=== PATIENT | female | born 1940 | race Caucasian/White ===

== ENCOUNTER 2019-09-04 05:27 | Inpatient (IN) ==
--- NOTE | 2019-08-20 11:31 | PAT Medication Instructions ---
Medication Instructions Date of Service August 20, 2019 Home Medications Bifidobacterium infantis [Align] 4 mg PO QAM amlodipine 10 mg PO QAM ascorbic acid (vitamin C) 500 mg PO DAILY aspirin [Aspir-81] 81 mg PO DAILY cholecalciferol (vitamin D3)50 mcg PO DAILY gabapentin 300 mg PO BID omega 3-oxc-tgy-fish oil [Fish Oil] 1 cap PO DAILY omeprazole 20 mg PO BID pravastatin 20 mg PO QAM vitamin B complex 1 cap PO DAILY STOP taking 2 weeks before surgery If surgery is within 2 weeks, stop taking as soon as possible. omega 6-cdq-jue-fish oil [Fish Oil] 1 cap PO DAILY DO NOT take the morning of surgery Bifidobacterium infantis [Align] 4 mg PO QAM ascorbic acid (vitamin C) 500 mg PO DAILY cholecalciferol (vitamin D3)50 mcg PO DAILY vitamin B complex 1 cap PO DAILY Take morning of surgery With a small sip of water, OTHERWISE NOTHING TO EAT OR DRINK AFTER MIDNIGHT: amlodipine 10 mg PO QAM aspirin [Aspir-81] 81 mg PO DAILY gabapentin 300 mg PO BID omeprazole 20 mg PO BID pravastatin 20 mg PO QAM Take evening before surgery gabapentin 300 mg PO BID omeprazole 20 mg PO BID Other Notes If you have any questions please call us at [phone] or [phone] or [phone] or [phone]
--- NOTE | 2019-08-20 11:54 | Anesthesiology Consultation ---
Date of Service August 20, 2019 Assessment & Plan (1) Encounter for pre-operative examination: PCP clearance 09/02/19 = "Cleared for surgery; Lexiscan stress is normal." [negative for ischemia/infarct; EF was low at 41%] Chart Review Chart Review: Acceptable Risk for Surgery and Patient seen in Pre Admission Testing Teaching & Discussion Instructed NPO after midnight before surgery, except medications with 15 cc of water. Medication instructions provided according to the PAT guidelines. History Surgery Operation Date: 09/04/19 07:45 Proposed Procedures p L4-L5 Decompression And Fusion, Possible L5-S1, With Spinal Cord Monitoring - Toñito Brock DO Height/Weight Height: 5 ft Weight: 57.9 kg Allergies Allergy/AdvReac Type Severity Reaction Status Date / Time adhesive Allergy Unknown Rash Verified 08/13/19 08:25 latex Allergy Unknown Rash - SEE Verified 08/13/19 08:25 NOTES BELOW ciprofloxacin [From Cipro] AdvReac Unknown N/V Verified 08/13/19 08:05 ELASTIC Allergy Unknown Rash Uncoded 08/13/19 08:25 Medications Home Medications Medication Instructions Recorded Confirmed Last Taken Bifidobacterium infantis [Align] 4 mg PO QAM 08/13/19 08/13/19 Unknown amlodipine 10 mg PO QAM 08/13/19 08/13/19 Unknown ascorbic acid (vitamin C) [Vitamin 500 mg PO DAILY 08/13/19 08/13/19 Unknown C] aspirin [Aspir-81] 81 mg PO DAILY 08/13/19 08/13/19 Unknown cholecalciferol (vitamin D3) 50 mcg PO DAILY 08/13/19 08/13/19 Unknown [Vitamin D3] gabapentin 300 mg PO BID 08/13/19 08/13/19 Unknown omega 5-wgv-jbm-fish oil [Fish Oil] 1 cap PO DAILY 08/13/19 08/13/19 Unknown omeprazole 20 mg PO BID 08/13/19 08/13/19 Unknown pravastatin 20 mg PO QAM 08/13/19 08/13/19 Unknown vitamin B complex 1 cap PO DAILY 08/13/19 08/13/19 Unknown Past Medical History Medical History (Updated 09/03/19 @ 10:54 by Elie Carias) Acid reflux Back problem History of aneurysm Pt reports it was in her nose and was surgically repaired. Hyperlipidemia Hypertension IBS (irritable bowel syndrome) Systolic heart failure EF 41% Exercise / Class Metabolic Activity II 4-5 Yardwork/Stairs/Walk up hill (Denies CP or SOB with 3 FOS) Past Family History Family History Other Family history of cancer in daughter Past Surgical History Surgical History History of colonoscopy History of hysterectomy History of left heart catheterization Pt reports done a long time ago and she is unsure why. History of nasal surgery To cauterize/repair aneurysm Past Anesthesia History No Hx of Anesthesia Complications (other than PONV) and No Family Hx of Anesthesia Complications History of PONV No Hx of Motion Sickness and History of PONV Social History Smoking Status: Current every day smoker tobacco type: cigarettes Smoking cigarettes per day: .5PPD/ADVISED NPO Hx Alcohol Use: No substance use type: does not use Review of Systems Pt denies any recent chest pain, shortness of breath, palpitations, cough, fever or URI. Physical Exam Vital Signs BP: 120/63 P: 57bpm SPO2: 96% RA T: 98.1 F R: 16 ENMT Mouth: no dental restorations, no chipped teeth and no loose teeth Thyromental Distance: < 3.5 Finger Breadths (3) Mallampati Class: III Neck normal visual inspection; neck extension not limited Respiratory normal respiratory effort Auscultation: lungs clear to auscultation bilaterally Cardiovascular Rate/Rhythm: + bradycardic; + abnormal rhythm (Irregularly irregular) Heart Sounds: no murmur Vessels: no carotid bruit Extremities: no edema Testing Laboratory Results 08/20/19 11:49 08/20/19 11:49 PT 10.2 Seconds (9.0-12.0) 08/20/19 11:49 INR 1.0 (0.9-1.1) 08/20/19 11:49 APTT 25.6 Seconds (21.0-31.0) 08/20/19 11:49 Urine Color Dark Yellow 08/20/19 Unknown Urine Appearance Cloudy (Clear) A 08/20/19 Unknown Urine pH 5.0 (4.5-7.5) 08/20/19 Unknown Ur Specific [place] 1.021 (1.000-1.030) 08/20/19 Unknown Urine Protein Negative (Negative) 08/20/19 Unknown Urine Glucose (UA) Negative (Negative) 08/20/19 Unknown Urine Ketones Negative (Negative) 08/20/19 Unknown Urine Nitrite Negative (Negative) 08/20/19 Unknown Ur Leukocyte Esterase 1+ (Negative) H 08/20/19 Unknown Urine WBC (Auto) >30 /hpf (0-5) H 08/20/19 Unknown Urine RBC (Auto) 0-4 /hpf (0-4) 08/20/19 Unknown U Hyaline Cast (Auto) 1-5 /lpf (0-5) 08/20/19 Unknown U Epithel Cells (Auto) >30 /lpf (0-5) H 08/20/19 Unknown Urine Bacteria (Auto) 2+ (Negative) H 08/20/19 Unknown Blood Type A Positive 08/20/19 11:49 Antibody Screen NEGATIVE 08/20/19 11:49 08/20/19 Unknown Urine Culture - Final Urine,Clean Catch Escherichia coli Surgeons office notified of + UA. Electrocardiogram Date: 08/20/19 Sinus rhythm at 61bpm with PACs. LVH with QRS widening and repolarization abnormality. Inferior infarct. Chest X-Ray Date: 08/20/19 Findings: + NAD Echocardiogram Date: 08/26/19 EF: 40-45% LV is normal in size and wall thickness. The presence of frequent ectopy preclu maribel a proper assessment of LV systolic function, however there is global hypokinesis. RV is normal in size and contractility. Moderate left atrial dilation. Degenerated and mildly myxomatous mitral valve, mild mitral regurgitation. Stress Test Date: 09/02/19 Type: nuclear Resting EF: 41% There is normal uptake of radioactivity on both the stress and resting images. There is no evidence of ischemic change or old myocardial infarct. There is normal LV wall motion.
--- NOTE | 2019-08-20 12:34 | XRay Report ---
XR chest Pre-admission PA/Lat CLINICAL HISTORY: Preoperative evaluation. COMPARISON STUDY: No previous studies for comparison. FINDINGS: Lung volumes are normal. Lungs are clear. There is no pneumothorax or pleural effusion. Car diac size is normal. Mediastinal contours are normal. There is no evidence for pulmonary edema. Incid ental note is made of mild S-shaped curvature of the thoracolumbar spine which is partially imaged. IMPRESSION: No acute cardiopulmonary findings. ACT 112: Negative or not required by law. Electronically signed by: David Adams M.D. 08/20/2019 12:33 PM
[2019-08-20 12:58] LABS: Basophils # (auto) 0.02 K/uL (0-0.2); Basophils % (auto) 0.3 %; Eosinophils # (auto) 0.31 K/uL (0-0.5); Eosinophils % (auto) 4.9 %; Hematocrit (blood only) 39.9 % (37-47); Hemoglobin 13.6 g/dL (12.0-16.0); Lymphocytes # (auto) 1.77 K/uL (1.2-3.4); Lymphocytes % (auto) 27.7 %; Mean Corpuscular Hemoglobin 32.8 pg (25-34); Mean Corpuscular Hgb Conc 34.1 g/dL (32-36); Mean Corpuscular Volume 96.1 fL (80-100); Mean Platelet Volume 11.1 fL (7.4-10.4); Monocytes # (auto) 0.44 K/uL (0.11-0.59); Monocytes % (auto) 6.9 %; Neutrophils # (auto) 3.84 K/uL (1.4-6.5); Neutrophils % (auto) 60.2 %; Platelet Count 213 K/uL (130-400); RDW Coefficient of Variation 13.2 % (11.5-14.5); RDW Standard Deviation 45.9 fL (36.4-46.3); Red Blood Count 4.15 M/uL (4.2-5.4); White Blood Count 6.38 K/uL (4.8-10.8)
[2019-08-20 13:02] LABS: Appearance Urine Cloudy (Clear); Bacteria Urine Automated 2+ (Negative); Bilirubin Urine Negative (Negative); Blood Urine Negative (Negative); Color Urine Dark Yellow; Epithelial Cell Urine Auto >30 /lpf (0-5); Glucose Urine UA Negative (Negative); Ketones Urine Negative (Negative); Leukocyte Esterase Urine 1+ (Negative); Nitrite Urine Negative (Negative); Protein Urine Negative (Negative); RBC Urine Automated 0-4 /hpf (0-4); Specific Gravity Urine 1.021 (1.000-1.030); Urobilinogen Urine Negative (Negative); WBC Urine Automated >30 /hpf (0-5)
[2019-08-20 13:11] LABS: Partial Thromboplastin Ratio 0.9; Partial Thromboplastin Time 25.6 Seconds (21.0-31.0); Prothrombin Time 10.2 Seconds (9.0-12.0)
[2019-08-20 15:44] LABS: BUN Creatinine Ratio 30.8 (10-20); Calcium 9.2 mg/dl (8.5-10.1); Creatinine Clr Calc Pharmacy 52.6 ml/min; Est GFR (African American) 95.8; Est GFR (Non-African American) 82.6; Potassium 4.5 mmol/L (3.5-5.1)
--- NOTE | 2019-08-21 17:36 | Electrocardiogram Report ---
Test Reason : Blood Pressure : / mmHG Vent. Rate : 061 BPM Atrial Rate : 088 BPM P-R Int : 204 ms QRS Dur : 126 ms QT Int : 484 ms P-R-T Axes : 055 055 231 degrees QTc Int : 487 ms Sinus rhythm with Premature atrial complexes Left ventricular hypertrophy with QRS widening and repolarization abnormality Inferior infarct , age undetermined Abnormal ECG No previous ECGs available Confirmed by Jose Berrios ([id number]) on 08/21/2019 5:36:12 PM Referred By: Toñito Brock Confirmed By:Deangelo Berrios
[2019-09-04] MEDS ORDERED: LR 15ML/HR IV SCH (06:00)
[2019-09-04] MEDS ORDERED: GABAPENTIN 300 MG CAP PO SCH (06:00)
[2019-09-04] MEDS ORDERED: CEFAZOLIN 1000MG 1,000 MG/7.5 ML SYR IV SCH (06:00)
[2019-09-04] MEDS ORDERED: CeleBREX 200 MG CAP PO SCH (06:00)
[2019-09-04] MEDS ORDERED: ACETAMINOPHEN 500 MG TAB PO SCH (06:00)
[2019-09-04] MEDS ORDERED: PROPOFOL IV EMULSION 10 MG/ML 20 ML VIAL IV ONE ×4 (07:01→11:38)
[2019-09-04] MEDS ORDERED: HYDROmorphone INJ 2 MG/ML SYR/VIAL ONE ×2 (07:01→10:39)
[2019-09-04] MEDS ORDERED: LIDOCAINE HCL 2% 2 ML VIAL/AMP(20MG/ML) INFIL ONE (07:01)
[2019-09-04] MEDS ORDERED: DEXAMETHASONE SOD INJ 4 MG/ML VIAL ONE (07:02)
[2019-09-04] MEDS ORDERED: NEOSTIGMINE METHYLSULFATE 1 MG/ML 10ML VIAL ONE (07:02)
[2019-09-04] MEDS ORDERED: ROCURONIUM BROMIDE 10 MG/ML 5 ML VIAL ONE ×3 (07:02→11:38)
[2019-09-04] MEDS ORDERED: ONDANSETRON INJ 2 MG/ML 2 ML VIAL ONE (07:02)
[2019-09-04] MEDS ORDERED: GLYCOPYRROLATE 0.2 MG/ML VIAL ONE (07:02)
[2019-09-04] MEDS ORDERED: LARYING-O-JET KIT (LTA) ONE (07:02)
[2019-09-04] MEDS ORDERED: ATROPINE SULFATE 0.1 MG/ML 10ML SYR IV PRN (07:10)
[2019-09-04] MEDS ORDERED: fentaNYL citrate 100 MCG/2 ML VIAL IV PRN (07:10)
[2019-09-04] MEDS ORDERED: PROMETHAZINE HCL 12.5 MG in SODIUM CHLORIDE 0.9% 50 ML IV PRN ×2 (07:10→11:54)
[2019-09-04] MEDS ORDERED: HYDROmorphone INJ 1 MG/ML SYRINGE IV PRN ×2 (07:10→11:54)
[2019-09-04] MEDS ORDERED: ePHEDrine sulfate 50 MG/ML AMP IV PRN (07:10)
[2019-09-04] MEDS ORDERED: ONDANSETRON INJ 2 MG/ML 2 ML VIAL IV PRN ×2 (07:10→11:54)
[2019-09-04] MEDS ORDERED: BUPIVACAINE/EPINEPHRINE 0.5% MPF 1:200,000 10 ML VIAL ONE (07:18)
[2019-09-04] MEDS ORDERED: BACITRACIN INJ 50,000 UNIT VIAL ONE (07:18)
--- NOTE | 2019-09-04 07:28 | History & Physical Bridge Note ---
Date of Service September 04, 2019 History & Physical Bridge Note I have examined the patient, reviewed the History & Physical and in the interval since the performance of the History & Physical I have noted the following changes of clinical significance: no changes noted
--- NOTE | 2019-09-04 07:29 | History & Physical Report ---
Date of Service September 04, 2019 Assessment & Plan (1) Neurogenic claudication due to lumbar spinal stenosis: L4-L5 decompression fusion, possible L5-S1 Present on Admission?: Yes History of Present Illness Chief Complaint: Back and leg pain Primary Care Provider: Brandi Lemus This is an 79-year-old female presents with worsening back and leg pain after failing extensive course of nonoperative care is here for surgical invention. Allergies Allergy/AdvReac Type Severity Reaction Status Date / Time adhesive Allergy Mild Rash Verified 09/04/19 06:03 latex Allergy Mild Rash - SEE Verified 09/04/19 06:03 NOTES BELOW ELASTIC Allergy Mild Rash Uncoded 09/04/19 06:03 Home Medications Home Medications Medication Instructions Recorded Confirmed Type Bifidobacterium infantis [Align] 4 mg PO QAM 08/13/19 09/04/19 History amlodipine 10 mg PO QAM 08/13/19 09/04/19 History ascorbic acid (vitamin C) [Vitamin 500 mg PO DAILY 08/13/19 09/04/19 History C] aspirin [Aspir-81] 81 mg PO DAILY 08/13/19 09/04/19 History cholecalciferol (vitamin D3) 50 mcg PO DAILY 08/13/19 09/04/19 History [Vitamin D3] gabapentin 300 mg PO BID 08/13/19 09/04/19 History omega 0-eas-ncn-fish oil [Fish Oil] 1 cap PO DAILY 08/13/19 09/04/19 History omeprazole 20 mg PO BID 08/13/19 09/04/19 History pravastatin 20 mg PO QAM 08/13/19 08/13/19 History vitamin B complex 1 cap PO DAILY 08/13/19 08/13/19 History tramadol 50 mg PO DAILY 09/04/19 09/04/19 History Past Med/Surg History Family History Other Family history of cancer in daughter Social History Preferred Language: Lao Communication Ability: Effective Pizza Baker Required: No Beliefs That Will Affect Care: None Current Living Situation: Alone Other Information That Helps Us Care for You: No Feels Safe at Home: Yes Smoking Status: Current every day smoker Tobacco Type: cigarettes ; Cigarettes Per Day: .5PPD/ADVISED NPO ; Tobacco Cessation Education Requested by Patient: No Hx Alcohol Use: No Physical Exam Physical Exam: Patient is alert and oriented neurologically intact. Results & Data Vital Signs (Past 12 Hours) Vital Signs Temp Pulse Resp BP Pulse Ox 09/04/19 06:08 37.0 C 75 18 146/56 H 96
[2019-09-04] MEDS ORDERED: FLOSEAL HEMOSTATIC MATRIX 10ML TOP ONE (08:59)
--- NOTE | 2019-09-04 10:07 | Operative Report ---
Post Operative Report Pre & Post Diagnosis Operation Date: 09/04/19 07:45 Pre-Op Diagnosis: LUMBAR SPINAL STENOSIS W/NEUROGENIC CLAUDICATION Spondylolisthesis L5-S1 Post-Op Diagnosis: LUMBAR SPINAL STENOSIS W/NEUROGENIC CLAUDICATION Spondylolisthesis L5-S1 I identified the patient and participated in the time-out.: No Procedure Operation Date: 09/04/19 07:45 Actual Procedures #1 lumbar decompression bilateral medial facetectomies foraminotomies L3-4, L4- 5, L5-S1. #2 posterior spinal fusion L4-5 L5-S1. #3 placement posterior instrumentation L4-5 L5-S1. #5 4 interbody fusion L5-S1. #5 placed a peek cage 10 x 22 mm L5-S1 peer #6 placement locally harvested morselized autograft in the posterior lateral gutters. #7 placement infuse collagen sponge, master graft in the posterior lateral gutters and ostial amp and interbody space. Surgeon Toñito Brock, Legal Services Manager Luc Arevalo Estimated Blood Loss 100 Findings Consistent with Post-Op Diagnosis Specimens None Indications This is a 79-year-old female presents with above-mentioned diagnosis after failing extensive course of nonoperative care is here for surgical intervention. Description of Procedure Patient was met with identified informed consent obtained. Patient was then taken to the operative suite underwent intubation placed in a prone position the Dwaine table on top of the Pawel frame. All bony prominences well-padded eyes inspected to ensure no external pressure placed upon the. This point the lumbar spine was prepped and draped in normal sterile fashion. Sharp dissection with the assistance of Bovie cautery performed to and exposing the lamina transverse processes of L for L5 and sacral ala bilaterally. From caudal cephalad fashion complete laminectomy of L5 L4 and partial laminectomy of L3 was performed addressing severe central lateral recess stenosis as well as foraminal disease. Pedicle screws were then placed in L4-L5 and S1 levels bilaterally with assistance of fluoroscopy and appropriate size [place] placed. By way of a transforaminal approach and left complete discectomy was performed endplates curetted to subcortical bleeding bone and a 10 x 22 mm peek cage filled with osteo-bone graft tapped in position. The rods were then locked in final position bilaterally. The transverse processes of L4-L5 and sacral ala burred to subcortical bleeding bone. Infuse collagen sponge master graft local autograft placed in the posterior lateral gutters. 15 round CORI drain inserted. The incision was then closed with 1 Vicryl in the fascia 2-0 Vicryl subcutaneously and 4 Monocryl for final skin closure. Steri-Strip sterile dressings placed. Patient will continue PACU stable condition. Please note Luc record present at the entire procedure.the patient positioning complex portions of the surgery and final skin closure. Lastly spinal cord monitoring was utilized that procedure no changes noted. I attest to the content of the Intraoperative Record and any orders documented therein. Any exceptions are noted below.
[2019-09-04] MEDS ORDERED: MIDAZOLAM HCL 1 MG/ML 2ML VIAL ONE (10:39)
--- NOTE | 2019-09-04 10:42 | Fluoroscopy Report ---
FL lumbar spine 2-3V CLINICAL HISTORY: L4-L5 DECOMPRESSION AND FUSION POSSIBLE L5-S1 COMPARISON STUDY: None FLUOROSCOPY TIME: 23 seconds. NUMBER OF FLUOROSCOPIC IMAGES: 2 FINDINGS: There are postsurgical changes of an L5-S1 discectomy and interbody fusion. There is carpenter repair ior pedicle screw fixation at the L4-S1 level. IMPRESSION: Postsurgical changes of an L4-S1 spinal decompression and fusion. Evidence for an L5-S1 discectomy and interbody fusion. ACT 112: Negative or not required by law. Electronically signed by: Aydin Swartz M.D. 09/04/2019 10:40 AM
--- NOTE | 2019-09-04 11:24 | Anesthesiology Progress Note ---
Date of Service September 04, 2019 Anesthesia Post Procedure Vital Signs Vital Signs: Temp Pulse Pulse Resp BP Pulse Ox 09/04/19 11:15 52 L 16 106/41 L 95 09/04/19 11:05 37.2 C 56 L 14 113/39 L 93 09/04/19 10:55 54 L 16 116/37 L 93 09/04/19 10:45 55 L 16 118/38 L 100 09/04/19 10:35 55 L 20 113/42 L 100 09/04/19 10:28 37 C 56 L 14 124/44 L 100 09/04/19 06:08 37.0 C 75 18 146/56 H 96 Pain Intensity Right Lower Back: Pain Intensity: 4 Transfer of Care Handoff Completed per policy Notes Mental Status: alert / awake / arousable and participated in evaluation Patient Amnestic to Procedure: Yes Nausea / Vomiting: adequately controlled Pain: adequately controlled Airway Patency, RR, SpO2: stable & adequate BP & HR: stable & adequate Hydration State: stable & adequate Anesthetic Complications: no major complications apparent and Pt Satisfied with anesthetic care
[2019-09-04] MEDS ORDERED: DO NOT ADMINISTER PNEUMOCOCCAL VACCINE PRN (11:54)
[2019-09-04] MEDS ORDERED: DO NOT ADMINISTER FLU VACCINE PRN (11:54)
[2019-09-04] MEDS ORDERED: ONDANSETRON 4 MG OD TAB PO PRN (11:54)
[2019-09-04] MEDS ORDERED: FAMOTIDINE 20 MG TAB PO PRN (11:54)
[2019-09-04] MEDS ORDERED: bisacodyL 10 MG SUPP PR PRN (11:54)
[2019-09-04] MEDS ORDERED: METOCLOPRAMIDE HCL INJ 5 MG/ML 2 ML VIAL IV PRN (11:54)
[2019-09-04] MEDS ORDERED: HYDROmorphone INJ 0.5 MG/0.5 ML SYR IV PRN (11:54)
[2019-09-04] MEDS ORDERED: MAGNESIUM HYDROXIDE SUSP 30 ML UDC PO PRN (11:54)
[2019-09-04] MEDS ORDERED: SOD PHOSPHATE/SOD BIPHOSPHATE ENEMA 132 ML BTL PR PRN (11:54)
[2019-09-04] MEDS ORDERED: LORazepam 0.5 MG/1 ML VIAL IV PRN (11:54)
[2019-09-04] MEDS ORDERED: OXYCODONE HCL IR 5 MG TAB (IMMEDIATE RELEASE) PO PRN (11:54)
[2019-09-04] MEDS ORDERED: LORazepam 0.5 MG TAB PO PRN (11:54)
[2019-09-04] MEDS ORDERED: NALOXONE HCL 0.4 MG/1 ML VIAL/CARP IV PRN (11:54)
[2019-09-04] MEDS ORDERED: ACETAMINOPHEN 1,000 MG/100 ML VIAL IV PRN (11:54)
[2019-09-04] MEDS ORDERED: ALUMINUM/MAGNESIUM SUSP 30 ML UDC PO PRN (11:54)
--- NOTE | 2019-09-04 13:07 | Hospitalist Consultation ---
Date of Consultation September 04, 2019 Assessment & Plan (1) Neurogenic claudication due to lumbar spinal stenosis: - POD#0 L3-L4, L4-L5, L5-S1 decompression and L4-L5, L5-S1 fusion by Dr. Brock - activity and wound care orders as per ortho - pain control with bowel regimen - PT/OT - monitor H/H for acute blood loss anemia and transfuse blood products PRN (2) Hypertension: -BP controlled, continue amlodipine (3) Chronic systolic CHF (congestive heart failure): -EF 40 to 45% on preop echo -Does not take routine diuretics -Monitor volume status closely (4) Hyperlipidemia: -Continue statin (5) Acid reflux: -Continue PPI (6) DVT prophylaxis: -SCDs as per spine orthopedics Thank you for this consultation. We will follow the patient with you during their hospital stay. You can reach a member of the [facility] Hospitalist Team 13/02 via pager @ [phone]. Supervising Physician Co-Signing Physician Notes I saw this patient with the Nurse Practitioner, I participated in the history, physical, review of systems, and physical exam. I reviewed the medications with the patient and the Nurse Practitioner and helped reconcile the medications. I helped take a detailed family and social history as well. I formulated the assessment and plan personally with the Nurse Practitioner went over it with the patient. Physical Exam Gen-AAO x 3, NAD, Afebrile, thin Head-NCAT, EOMI, PERRLA, Anicteric Sclera, No Posterior Pharyngeal Erythema Neck-Supple, No JVD, No Thyromegaly, No Masses, No LAD, No Bruits Lungs-Clear to Auscultation Bilaterally, No Rales, No Rhonchi, No Wheezing, No Crepitus Chest-No S4, +S1, +S2, No S3, No Murmurs, No Rubs, No Gallops, No Ectopy Abdomen-Soft, Bowel Sounds Present, Non Tender, Non Distended, No Hepatomegaly, No Splenomegaly, No Palpable Masses, No Rebound, No Rigidity, No Guarding Musculoskeletal-Decr Range of Motion sec to soreness in back, No CVAT Extremities-No Cyanosis, No Clubbing, No Edema Nuero-Cranial Nerves II-XII grossly intact, Motor WNL, DTRs WNL, Strength WNL, Non Focal Psych-Normal Mood History of Present Illness Reason for Consultation: Postop medical management Requesting Physician: Dr. Brock Attending Physician: Dr. Castro History of Present Illness 79-year-old female who is status post L3-L4, L4-L5, L5-S1 decompression and fusion today by Dr. Brock. Postoperatively, the patient is doing well. She reports her pain is well controlled. No numbness or tingling to lower extremities. She denies chest pain shortness of breath. No lightheadedness or dizziness. Denies abdominal pain or nausea. Suh catheter is in place draining clear yellow urine. Allergies Allergy/AdvReac Type Severity Reaction Status Date / Time adhesive Allergy Mild Rash Verified 09/04/19 06:03 latex Allergy Mild Rash - SEE Verified 09/04/19 06:03 NOTES BELOW ELASTIC Allergy Mild Rash Uncoded 09/04/19 06:03 Home Medications Home Medications Medication Instructions Recorded Confirmed Type Bifidobacterium infantis [Align] 4 mg PO QAM 08/13/19 09/04/19 History amlodipine 10 mg PO QAM 08/13/19 09/04/19 History ascorbic acid (vitamin C) [Vitamin 500 mg PO DAILY 08/13/19 09/04/19 History C] aspirin [Aspir-81] 81 mg PO DAILY 08/13/19 09/04/19 History cholecalciferol (vitamin D3) 50 mcg PO DAILY 08/13/19 09/04/19 History [Vitamin D3] gabapentin 300 mg PO BID 08/13/19 09/04/19 History omega 6-cic-aiw-fish oil [Fish Oil] 1 cap PO DAILY 08/13/19 09/04/19 History omeprazole 20 mg PO BID 08/13/19 09/04/19 History pravastatin 20 mg PO QAM 08/13/19 08/13/19 History vitamin B complex 1 cap PO DAILY 08/13/19 08/13/19 History tramadol 50 mg PO DAILY 09/04/19 09/04/19 History Patient History Medical History Acid reflux Chronic systolic CHF (congestive heart failure) EF 40-45% Hyperlipidemia Hypertension IBS (irritable bowel syndrome) Surgical History History of colonoscopy History of hysterectomy History of left heart catheterization Pt reports done a long time ago and she is unsure why. History of nasal surgery To cauterize/repair aneurysm Family History Father Heart disease Mother Heart disease Social History Preferred Language: Micronesian Communication Ability: Effective Deputy Juvenile Officer Required: No Beliefs That Will Affect Care: None Current Living Situation: Alone Other Information That Helps Us Care for You: No Feels Safe at Home: Yes Smoking Status: Current every day smoker Tobacco Type: cigarettes ; Cigarettes Per Day: .5PPD/ADVISED NPO ; Tobacco Cessation Education Requested by Patient: No Hx Alcohol Use: No Review of Systems Review of Systems: ROS per HPI, all other systems reviewed and negative Physical Exam Constitutional: WD/WN, vitals as above Eyes: PERRL, conjunctivae normal, anicteric sclerae ENMT: external ear and nose normal, oropharynx normal Respiratory: normal respiratory effort, lungs clear to auscultation Cardiovascular: Rate/Rhythm: + irregularly irregular Vessels: normal peripheral pulses Extremities: no edema Gastrointestinal (Abdomen): normal bowel sounds, soft, nontender, no hepatosplenomegaly Musculoskeletal: no cyanosis or clubbing, extremities motor strength 5/5 S/p back surgery, drain in place draining bloody drainage, pedal pushes and pull strong bilaterally Skin: no rashes, warm and dry Neurologic: PERRL, EOMI, accommodation nl, no face palsy, no dysarthria Psychiatric: A+Ox3, euthymic affect Genitourinary: Suh catheter in place draining clear yellow urine Results & Data ([facility]) Vital Signs (Past 12 Hours) Vital Signs Temp Pulse Pulse Pulse Resp BP BP 09/04/19 12:44 36.9 C 51 L 18 108/50 L 09/04/19 12:31 110/52 L 09/04/19 12:21 64 18 09/04/19 11:35 36.8 C 52 L 18 105/41 L 09/04/19 11:25 37.2 C 57 L 14 104/42 L 09/04/19 11:15 52 L 16 106/41 L 09/04/19 11:05 37.2 C 56 L 14 113/39 L 09/04/19 10:55 54 L 16 116/37 L 02/12/20 10:45 55 L 16 118/38 L 09/04/19 10:35 55 L 20 113/42 L 09/04/19 10:28 37 C 56 L 14 124/44 L 09/04/19 06:08 37.0 C 75 18 146/56 H Pulse Ox 09/04/19 12:44 98 09/04/19 12:31 09/04/19 12:21 97 09/04/19 11:35 95 09/04/19 11:25 96 09/04/19 11:15 95 09/04/19 11:05 93 09/04/19 10:55 93 09/04/19 10:45 100 09/04/19 10:35 100 09/04/19 10:28 100 09/04/19 06:08 96
[2019-09-04] MEDS: SODIUM CHLORIDE 0.9% 1000ML 1,000 ML IV SCH (13:45)
[2019-09-04] MEDS: TRAMADOL HCL 50 MG TABLET PO PRN ×2 (14:31→16:44)
[2019-09-04] MEDS: ACETAMINOPHEN 500 MG TAB PO PRN (16:45)
[2019-09-04] MEDS: CEFAZOLIN 1000MG 1,000 MG/7.5 ML SYR IV SCH ×2 (17:10→23:45)
[2019-09-04] MEDS: DOCUSATE SODIUM/SENNA 50/8.6MG TAB PO SCH (21:28)
[2019-09-04] MEDS: PANTOprazole 40 MG TAB PO SCH (21:28)
[2019-09-04] MEDS: GABAPENTIN 300 MG CAP PO SCH (21:28)
[2019-09-05] MEDS: SODIUM CHLORIDE 0.9% 1000ML 1,000 ML IV SCH (01:05)
[2019-09-05] MEDS: TRAMADOL HCL 50 MG TABLET PO PRN ×2 (03:15→16:22)
[2019-09-05] MEDS: POLYETHYLENE (MIRALAX) 17 GM PACK PO SCH ×4 (05:48→23:30)
[2019-09-05 06:10] LABS: Eosinophils # (auto) 0.06 K/uL (0-0.5); Eosinophils % (auto) 0.6 %; Hematocrit (blood only) 31.7 % (37-47); Hemoglobin 10.8 g/dL (12.0-16.0); Immature Granulocytes # (auto) 0.01 K/uL (0.00-0.02); Immature Granulocytes % (auto) 0.1 %; Lymphocytes # (auto) 1.75 K/uL (1.2-3.4); Lymphocytes % (auto) 18.6 %; Mean Corpuscular Hemoglobin 32.7 pg (25-34); Mean Corpuscular Hgb Conc 34.1 g/dL (32-36); Mean Corpuscular Volume 96.1 fL (80-100); Mean Platelet Volume 11.2 fL (7.4-10.4); Monocytes # (auto) 1.02 K/uL (0.11-0.59); Monocytes % (auto) 10.8 %; Neutrophils # (auto) 6.59 K/uL (1.4-6.5); Neutrophils % (auto) 69.9 %; Platelet Count 157 K/uL (130-400); RDW Coefficient of Variation 13.4 % (11.5-14.5); RDW Standard Deviation 46.9 fL (36.4-46.3); White Blood Count 9.43 K/uL (4.8-10.8)
[2019-09-05 06:45] LABS: BUN Creatinine Ratio 19.4 (10-20); Calcium 8.2 mg/dl (8.5-10.1); Creatinine Clr Calc Pharmacy 53.7 ml/min; Est GFR (African American) 96.5; Est GFR (Non-African American) 83.3; Potassium 4.2 mmol/L (3.5-5.1)
[2019-09-05] MEDS ORDERED: NON-FORMULARY MEDICATION (Bifidobacterium Infantis [Align] 4 MG) PO SCH (09:00)
[2019-09-05] MEDS: CHOLECALCIFEROL 1,000 UNITS 25 MCG TAB PO SCH (09:06)
[2019-09-05] MEDS: PANTOprazole 40 MG TAB PO SCH ×2 (09:06→20:23)
[2019-09-05] MEDS: OMEGA-3 (PURIFIED FISH OIL) 1 GM CAP PO SCH (09:06)
[2019-09-05] MEDS: GABAPENTIN 300 MG CAP PO SCH ×2 (09:06→20:24)
[2019-09-05] MEDS: ASCORBIC ACID 500 MG TAB PO SCH (09:11)
[2019-09-05] MEDS: AMLODIPINE BESYLATE 5 MG TAB PO SCH (09:11)
[2019-09-05] MEDS: ASPIRIN 81 MG ECTAB PO SCH (09:11)
[2019-09-05] MEDS: VITAMIN B COMPLEX TAB PO SCH (09:11)
[2019-09-05] MEDS: PRAVASTATIN SOD 20 MG TAB PO SCH (09:11)
[2019-09-05] MEDS: ACETAMINOPHEN 500 MG TAB PO PRN ×2 (09:17→17:15)
--- NOTE | 2019-09-05 09:55 | Anesthesiology Progress Note ---
Date of Service September 05, 2019 Anesthesia Post Procedure Vital Signs Vital Signs: Temp Pulse Pulse Resp BP BP Pulse Ox 09/05/19 07:36 36.9 C 57 L 18 136/69 91 09/05/19 02:47 36.9 C 46 L 18 127/63 93 09/04/19 23:05 36.8 C 65 18 124/50 L 94 09/04/19 20:00 36.8 C 56 L 16 116/40 L 94 09/04/19 15:52 130/58 L 09/04/19 15:48 36.6 C 56 L 18 94 09/04/19 14:41 118/50 L 09/04/19 14:36 36.4 C L 61 16 95 09/04/19 13:44 105/55 L 09/04/19 13:39 36.6 C 68 18 97 09/04/19 12:44 36.9 C 51 L 18 108/50 L 98 09/04/19 12:31 110/52 L 09/04/19 12:21 64 18 97 09/04/19 11:35 36.8 C 52 L 18 105/41 L 95 09/04/19 11:25 37.2 C 57 L 14 104/42 L 96 09/04/19 11:15 52 L 16 106/41 L 95 09/04/19 11:05 37.2 C 56 L 14 113/39 L 93 09/04/19 10:55 54 L 16 116/37 L 93 09/04/19 10:45 55 L 16 118/38 L 100 09/04/19 10:35 55 L 20 113/42 L 100 09/04/19 10:28 37 C 56 L 14 124/44 L 100 Pain Intensity Right Lower Back: Pain Intensity: 1 Notes Mental Status: alert / awake / arousable Patient Amnestic to Procedure: Yes Nausea / Vomiting: adequately controlled Pain: adequately controlled Airway Patency, RR, SpO2: stable & adequate BP & HR: stable & adequate Hydration State: stable & adequate Anesthetic Complications: no major complications apparent and Pt Satisfied with anesthetic care
--- NOTE | 2019-09-05 11:06 | Orthopedic Progress Note ---
Date of Service September 05, 2019 Assessment & Plan (1) Neurogenic claudication due to lumbar spinal stenosis: This time would like to continue physical therapy monitor CORI output hopefully discharge home in the next few days. Present on Admission?: Yes Admission and Anticipated Discharge Date Admission Date: September 04, 2019 Subjective Patient's back pain is controlled leg pain improved. Physical Exam Physical Exam: Patient is in the chair at the bedside. Appears comfortable. Is good strength testing. Results & Data ([facility]) Vital Signs (Past 12 Hours) Vital Signs Temp Pulse Resp BP Pulse Ox 09/05/19 07:36 36.9 C 57 L 18 136/69 91 09/05/19 02:47 36.9 C 46 L 18 127/63 93
--- NOTE | 2019-09-05 17:13 | Hospitalist Progress Note ---
Date of Service September 05, 2019 Assessment & Plan (1) Neurogenic claudication due to lumbar spinal stenosis: S/P day#1 L3-L4, L4-L5, L5-S1 decompression and L4-L5, L5-S1 fusion by Dr. Brock No post op complication Continue pain controlled Hgb dropped to 10.8 Continue Incentive spirometry Continue PT/OT fall precaution Monitor H/H Acute Blood loss anemia Hgb pre-op was 13.6, dropped to 10.8 today Monitor H/H and transfuse if needed (2) Hypertension: BP controlled Continue amlodipine (3) Chronic systolic CHF (congestive heart failure): EF 40 to 45% on preop echo No sign of volume overload Monitor volume status closely (4) Hyperlipidemia: Continue statin (5) Acid reflux: Continue PPI (6) DVT prophylaxis: SCDs as per spine orthopedics Thank you for this consultation. We will follow the patient with you during their hospital stay. You can reach a member of the [facility]ist Team 13/02 via pager @ [phone]. Admission and Anticipated Discharge Date Admission Date: September 04, 2019 Subjective Pt was seen and examined Lying in bed with no distress Pt said that she feels fine She said that she walked with therapy today Denies any chest pain, palpitation, dizziness and SOB Physical Exam Physical Exam: General- No acute distress Head- atraumatic Eyes- PERRL, EOMI, ENT- oropharynx clear Neck- supple, no JVD Lungs- clear to auscultation Heart- regular rhythm; no murmur Abdomen- normal bowel sounds, soft, nontender Extremities- no calf tenderness Neuro- alert, oriented x 3; PERRL, EOMI; no facial palsy; no dysarthria Skin- warm & dry Results & Data ([facility]) Vital Signs (Past 12 Hours) Vital Signs Temp Pulse Resp BP Pulse Ox 09/05/19 15:13 36.9 C 48 L 16 128/47 L 94 09/05/19 11:31 36.9 C 46 L 17 132/75 93 09/05/19 07:36 36.9 C 57 L 18 136/69 91
[2019-09-05] MEDS: DOCUSATE SODIUM/SENNA 50/8.6MG TAB PO SCH (20:23)
[2019-09-06 05:35] LABS: Hematocrit (blood only) 30.9 % (37-47); Hemoglobin 10.5 g/dL (12.0-16.0); Mean Corpuscular Hemoglobin 32.7 pg (25-34); Mean Corpuscular Volume 96.3 fL (80-100); Mean Platelet Volume 10.6 fL (7.4-10.4); Platelet Count 145 K/uL (130-400); RDW Coefficient of Variation 13.5 % (11.5-14.5); RDW Standard Deviation 47.3 fL (36.4-46.3); Red Blood Count 3.21 M/uL (4.2-5.4); White Blood Count 7.35 K/uL (4.8-10.8)
[2019-09-06] MEDS: TRAMADOL HCL 50 MG TABLET PO PRN ×2 (05:40→12:44)
[2019-09-06] MEDS: POLYETHYLENE (MIRALAX) 17 GM PACK PO SCH ×2 (05:41→08:33)
--- NOTE | 2019-09-06 08:23 | Discharge Summary ---
Date of Service September 06, 2019 Admission HPI Per Admitting Provider This is an 79-year-old female presents with worsening back and leg pain after failing extensive course of nonoperative care is here for surgical invention. Principal Diagnosis Lumbar spinal stenosis with neurogenic claudication Discharge Data Allergies Allergy/AdvReac Type Severity Reaction Status Date / Time adhesive Allergy Mild Rash Verified 09/04/19 06:03 latex Allergy Mild Rash - SEE Verified 09/04/19 06:03 NOTES BELOW ELASTIC Allergy Mild Rash Uncoded 09/04/19 06:03 Consultations 09/04/19 11:54 Consult Case Management - Discharge Planning Routine Consult Hospitalist Routine Procedures Performed Operation Date: 09/04/19 07:45 Actual Procedures p L4-L5, L5-S1 Decompression And Fusion, Interbody Cage Insertion L5-S1, With Spinal Cord Monitoring(Not Applicable) - Toñito Brock DO Ordered Studies 09/04/19 07:45 FL fluoroscopy <1hr Routine FL lumbar spine 2-3V Routine Hospital Course (1) Neurogenic claudication due to lumbar spinal stenosis: Patient underwent lumbar decompression fusion tolerated well was taken to orthopedic for postoperative. Postop day 1 she was up and ambulating leg pain markedly improved. Postop day 2 she had excellent strength testing pain well controlled CORI drain decreasing appropriately. Subsequent discharge home. Discharge orders instructions from the chart for further review. Total Time Total Time Spent Total Time Spent (In Minutes): 20 minutes Discharge Plan Discharge Items Patient Disposition: Home - Self-Care Reason For Visit: LUMBAR SPINAL STENOSIS W/NEUROGENIC CLAUDICATION Discharge Diagnosis: Lumbar spinal stenosis with neurogenic claudication Activity: As commented below Non-emergency contact: Primary Care Provider Call non-emergency contact if: you have any medication questions Follow-up/Referrals: Brandi Lemus M.D. [Primary Care Provider] - Diet: Regular Addtl Attending Provider Instructions: ACTIVITY RECOMMENDATIONS: SELF CARE INSTRUCTIONS AFTER THORACIC/LUMBAR FUSIONS 1. You may walk to your tolerance. It is good exercise for your legs and back. Expect some back and intermittent leg aches and pains. 2. You may perform "counter-top" level activities (make a sandwich, elan with a project, etc.). 3. No bending or lifting of more than 10 pounds or back twisting of any nature (roll like a log when turning in bed). 4. You may ride in a car for 20-30 minutes at a time. No driving until after your first visit with your doctor. 5. Frequent changes of position and restricting sitting to 30 minutes at a time will help limit the amount of back spasms and stiffness you may experience. 6. You may discontinue the use of ambulatory aids (cane, crutches, etc.) once your strength and confidence allow. 7. You may wood treating inspector the shower and let water strike your incision when you arrive home at least once daily. Do not take a tub bath, sit in a hot tub or go into a swimming pool until after your first recheck in the office. SPECIAL CARE INSTRUCTIONS: VERY IMPORTANT TO READ AND REVIEW A. Your surgical incision has been closed with a cosmetic suture under the skin that will dissolve in about 6 weeks. In 14 days, you can use a pair of clean scissors and cut the suture that is left outside of the skin at the ends of your incision. 1. The small skin tapes can be removed 7 days after surgery if they have not fallen off by that point. 2. You may keep the wound open to air as much as possible to promote healing after post-op day number 5 unless told otherwise by your doctor. 3. If you think the wound looks like it is becoming infected (redness or worsening drainage) and/or you are experiencing fever, chill or worsening back pain and muscle spasms, contact the office so that we may evaluate you as soon as possible. B. Complications are uncommon, but please contact us if you have any signs or symptoms of: 1. wound infection (fever higher than 102.5 degrees F, redness, separation of wound, drainage, or increasing pain from the incision) 2. blood clots in legs (pain, swelling, redness and warmth in legs) 3. urinary tract infection (fever higher than 102.5 degrees F, burning upon urination or increased frequency of urination) 4. nerve problems (inability to walk on your toes or heels, numbness, loss of bowel or bladder control) 5. any other symptoms that concern you C. Please call the office at if you have any concerns or questions about your operation or recovery. D. No smoking! Smoking drastically decreases the chance of a solid fusion. E. Do not take any anti-inflammatory medications (Indocin, Advil, Motrin, Aspirin, Naprosyn, etc.) as these may inhibit the chance of a solid fusion. Tylenol is okay to take for pain. MANAGING PAIN AFTER SPINAL SURGERY 1. Narcotic medication is intended for short-term use and will be provided for surgical pain. Surgical pain usually lasts for a period of 4-6 weeks. Narcotic medication includes Percocet, Vicodin, Darvocet, Tylenol #3 or Lortab. 2. Longer-term pain is more appropriately treated with non-narcotic medication such as Tylenol ES. 3. Muscle spasm is not appropriately treated with narcotics. Muscle relaxers such as Soma, Flexeril or Skelaxin can be used along with Tylenol ES. 4. Remember that we all live with some "aches and pains". This is not unusual or uncommon after an injury or as we get older. a. Back pain is expected and may include muscle spasms for 4 to 6 weeks after surgery. The pain should gradually improve. If the pain worsens for no apparent reason, please contact the office. b. Intermittent leg pain may also be experienced and should not be concerned about unless it worsens for no apparent reason. If so, please contact the office. 5. We will provide appropriate medication within the normal guidelines of their prescribed use. We will also be very cautious and aware of potential abuse and extended duration of patients' medication needs. a. Pain medications are for your comfort and to assist with sleep and rest so that the tissue can heal. They are not provided in order to return to normal activity and should not be used through the day. To do so or worsening pain at night can result from ongoing tissue damage and development of tolerance to the prescribed medicine. 6. Please allow 2-3 days to process refills. Prescriptions will not be mailed but must be picked up at the office. FOLLOW UP VISIT: Keep your scheduled follow-up appointment. Any questions, please call the office at . Pending Studies at Discharge: No Stand-Alone Forms: My [employer], Smoking Cessation Medications and DC Order Prescriptions: New tramadol 50 mg tablet 50 mg PO Q6H PRN (Reason: pain, moderate) Qty: 30 RF: 0 oxycodone 5 mg tablet 5 mg PO Q6H PRN (Reason: pain, severe) Qty: 30 RF: 0 Continued aspirin [Aspir-81] 81 mg Tablet,Delayed Release (Dr/Ec) 81 mg PO DAILY RF: 0 ascorbic acid (vitamin C) [Vitamin C] 500 mg Tablet 500 mg PO DAILY RF: 0 amlodipine 10 mg Tablet 10 mg PO QAM RF: 0 gabapentin 300 mg Capsule 300 mg PO BID RF: 0 omeprazole 20 mg Capsule,Delayed Release(Dr/Ec) 20 mg PO BID RF: 0 pravastatin 20 mg Tablet 20 mg PO QAM RF: 0 vitamin B complex Capsule 1 cap PO DAILY RF: 0 cholecalciferol (vitamin D3) [Vitamin D3] 25 mcg (1,000 unit) Capsule 50 mcg PO DAILY RF: 0 Align 4 mg Capsule 4 mg PO QAM RF: 0 omega [id number]-[id number]-fish oil [Fish Oil] 1,000 mg (120 mg-180 mg) Capsule 1 cap PO DAILY RF: 0 tramadol 50 mg Tablet 50 mg PO DAILY RF: 0 Discharge Orders: Discharge Order (Routine); Ordered 09/06/19 Ordered By: Toñito Brock Admission Data Admit Date/Time: 09/04/19 10:56 Attending Provider: Toñito Brock Admit Provider: Toñito Brock Primary Care Provider: Brandi Lemus Other Providers: Arvind Sykes
[2019-09-06] MEDS: AMLODIPINE BESYLATE 5 MG TAB PO SCH (08:32)
[2019-09-06] MEDS: VITAMIN B COMPLEX TAB PO SCH (08:32)
[2019-09-06] MEDS: PRAVASTATIN SOD 20 MG TAB PO SCH (08:32)
[2019-09-06] MEDS: OMEGA-3 (PURIFIED FISH OIL) 1 GM CAP PO SCH (08:32)
[2019-09-06] MEDS: GABAPENTIN 300 MG CAP PO SCH (08:32)
[2019-09-06] MEDS: ASCORBIC ACID 500 MG TAB PO SCH (08:32)
[2019-09-06] MEDS: PANTOprazole 40 MG TAB PO SCH (08:32)
[2019-09-06] MEDS: ASPIRIN 81 MG ECTAB PO SCH (08:32)
[2019-09-06] MEDS: CHOLECALCIFEROL 1,000 UNITS 25 MCG TAB PO SCH (08:32)
== END 2019-09-06 14:27 | disposition home or self-care (01) | DRG 454 ==
LOC: ASU 05:27 → 3E 10:56